=== PATIENT | female | born 1960 | race African-American/Black ===

== ENCOUNTER 2016-10-15 19:33 | Emergency (ER) | payer OTHER ==
[~2016-10-15] VITALS: Ht 165.1 cm; Wt 106.0 kg
[~2016-10-15 19:33] MED LIST: AMLO5TAB4 PO; HYDR25TA PO
[2016-10-15] MEDS ORDERED: HYDROCODONE/ACETAMINOPHEN 10/325MG TABLET PO ONE (22:15)
[2016-10-15] MEDS ORDERED: KETOROLAC 60MG/2ML VIAL IM ONE (22:15)
[2016-10-15 23:30] VITALS: BP 148/84
== END 2016-10-15 23:46 | disposition home or self-care (01) ==
LOC: ER 22:04
DX: M19.90 Unspecified osteoarthritis, unspecified site (principal); I10 Essential (primary) hypertension; E11.9 Type 2 diabetes mellitus without complications; Z87.891 Personal history of nicotine dependence; Z88.8 Allergy status to other drugs, medicaments and biological substances
CPT/HCPCS: 96372; 99283; J1885